=== PATIENT | female | born 1960 | race African-American/Black ===

== ENCOUNTER 2016-08-25 07:37 | Emergency (ER) ==
--- NOTE | 2016-08-25 08:39 | PROVIDER DOCUMENTATION ---
HPI-EENT General <Avril Snell - Last Filed: 08/25/16 09:46> - General Source: patient - History of Present Illness-EENT General EENT Location: reports: facial Quality of Pain: reports: aching Severity: reports: mild Onset/Duration: reports: other (2 weeks) Timing: reports: still present Prearrival Treatment: Initiated over the counter meds Associated Symptoms: reports: cough. denies: ear drainage, nasal congestion/ drainage, sore throat, voice change Locality of Occurance: Home Similar Symptoms Previously?: Yes Recently seen or treated by another doctor?: No <Kaushal Mcleod - Last Filed: 08/25/16 09:50> - General Chief Complaint: Headache Stated Complaint: HEADACHE/EARACHE/EYE PAIN Time Seen by Provider: 08/25/16 08:33 Allergies/Adverse Reactions: Patient Allergies Allergy/AdvReac Type Severity Reaction Status Date / Time codeine Allergy NAUSEA/VOMI Verified 10/14/13 18:14 TING sulfamethoxazole Allergy NAUSEA/VOMI Verified 10/14/13 18:14 [From Bactrim] TING trimethoprim [From Bactrim] Allergy NAUSEA/VOMI Verified 10/14/13 18:14 TING Home Medications: Home Medication List Medication Instructions Recorded Confirmed Last Taken Type Htn Tab 10/14/13 10/14/13 Unknown History Albuterol Sulfate [Albuterol 18 gm IH 4XDAY PRN PRN #1 08/25/16 Unknown Rx Sulfate Hfa] [email or web address] Hydrocodone/Homatropine [Hydromet] 2 tsp PO Q4-6H PRN PRN #6 oz 08/25/16 Unknown Rx PRAVAstatin [Pravachol] 10 mg PO DAILY 08/25/16 08/25/16 Unknown History Triamterene/Hydrochlorothiazid 1 each PO DAILY 08/25/16 08/25/16 Unknown History [Dyazide 37.5-25 Capsule] - History of Present Illness-EENT General Nature of Presenting Problem: cough x 2 week no f or chills no sob family sick (Kaushal Mcleod) Review of Systems - Adult - REVIEW OF SYSTEMS - ADULT Constitutional: denies: fever Eyes: denies: dry eyes, eye pain, redness Ears, Nose, Mouth & Throat: denies: sinus problem, hoarseness, throat pain, throat swelling Cardiovascular: denies: chest pain, palpitations Respiratory: reports: cough. denies: dyspnea on exertion, excessive sputum production, hemoptysis, pleurisy, shortness of breath, wheezing Gastrointestinal: denies: abdominal pain, diarrhea, nausea, vomiting Genitourinary: denies: dysuria, discharge, frequency, flank pain Musculoskeletal: reports: no symptoms reported Integumentary: reports: no symptoms reported Neurological: reports: no symptoms reported Psychiatric: reports: no symptoms reported Endocrine: reports: no symptoms reported Hematologic/Lymphatic: reports: no symptoms reported Allergic/Immunologic: reports: no symptoms reported <Kaushal Mcleod - Last Filed: 08/25/16 09:50> Past History - Adult - PAST MEDICAL HISTORY-ADULT Review of Records: reports: Nursing Assessment Review, Medications Reviewed, Social history reviewed & non-contributory. Major Childhood Illnesses: reports: denies history Cardiovascular: reports: denies history Respiratory: reports: denies history Gastrointestinal: reports: denies history Obstetrical/Gynecological: reports: denies history Genitourinary: reports: denies history Musculoskeletal: reports: denies history Neurological: reports: denies history Psychiatric: reports: denies history Endocrine/Immune: reports: denies history Other Conditions: reports: denies history - PRIOR SURGERIES/PROCEDURES Surgical/Procedure History: reports: hysterectomy - PRIOR HOSPITALIZATIONS Prior Hospitalizations: reports: for other non-related - IMMUNIZATION STATUS Childhood Immunizations: See Nurse Assessment Flu Vaccine: See Nurse Assessment - FAMILY HISTORY Family History: other (not contributory) <Kaushal Mcleod - Last Filed: 08/25/16 09:50> Physical Exam- EENT - Physical Exam EENT Initial Vital Signs Reviewed: Yes General Appearance: appears well, no apparent distress Eye Exam: bilateral eye: normal inspection, PERRL, EOMI Ear Exam: bilateral ear: auricle normal, canal normal, TM normal Nasal Exam: normal inspection Throat Exam: pharynx normal Neck: supple Respiratory: lungs clear, decreased breath sounds Cardiovascular: regular rate, rhythm Abdominal Exam: soft Lymphatic: no adenopathy Back Exam: normal inspection Extremity: normal range of motion Integumentary: normal color Neurologic: grossly normal Psych/Mental Status: oriented x 3 <Kaushal Mcleod - Last Filed: 08/25/16 09:50> Progress - XRAY 1 XRAY: Bilateral XRAY Study: Chest Impression: Normal XRAY Interpretation: negative exam <Avril Snell - Last Filed: 08/25/16 09:46> <Kaushal Mcleod - Last Filed: 08/25/16 09:50> - PLAN OF CARE/RESULTS Progress/Plan/Lab Results: Orders Category Date Time Status CHEST-2 VIEWS [RAD] Stat Exams 08/25/16 08:34 Draft Albuterol 2.5MG/Ipratrop 0.5MG [Duoneb (A & A)] Med 08/25/16 09:05 Discontinued 3 ml INH NOW ONE Aerosol Treatments Stat Oth 08/25/16 09:05 Active Peak Flow Stat Oth 08/25/16 08:34 Active Vital Signs - 24 hr 08/25/16 08/25/16 07:46 09:05 Temperature 98.3 F Pulse Rate 79 73 Respiratory 18 18 Rate Blood Pressure 143/77 O2 Sat by Pulse 100 98 Oximetry (Avril Snell) Departure <Avril Snell - Last Filed: 08/25/16 09:46> - Departure Time of Disposition Order: 09:47 Certified Medical Emergency: Emergent <Kaushal Mcleod - Last Filed: 08/25/16 09:50> - Departure DIAGNOSIS: Acute asthma flare Qualifiers: Asthma severity: unspecified severity Qualified Code(s): J45.901 - Unspecified asthma with (acute) exacerbation Disposition: HOME 01 Condition: Stable Additional Instructions: ED Follow Up Instructions: You have been treated by a care provider in the Emergency Department. These instructions are being provided to you so you can have an understanding of how to care for yourself upon discharge. Upon discharge from the Emergency Department, you are responsible for making arrangements for follow-up care by a physician of your choice. Take all prescribed medications as directed. Return to the Emergency Department immediately for any new or worsening symptoms. You may call the Physician Referral phone number at [phone] to obtain a list of Physicians who are taking new patients. Prescriptions: Albuterol Sulfate [Albuterol Sulfate Hfa] 18 gm IH 4XDAY PRN PRN #1 [email or web address] PRN Reason: Wheezing Hydrocodone/Homatropine [Hydromet] 2 tsp PO Q4-6H PRN PRN #6 oz PRN Reason: Cough Attestation - Scribe Verification/Attestation Scribe:: Avril Snell Acting as Scribe for:: Kaushal Mcleod Scribe documention review:: This chart was documented by a scribe and accurately reflects the service the provider performed and the decisions made by the provider. <Avril Snell - Last Filed: 08/25/16 09:46> Physician Attestation
[2016-08-25] MEDS ORDERED: DUONEB (A & A) INH ONE (09:05)
--- NOTE | 2016-08-25 09:26 | Diag Imaging Result Document ---
PROCEDURE NAME: CHEST-2 VIEWS - 08/25/2016 CHEST X-RAY, 2 VIEWS: COMPARISON: None. FINDINGS: There is a tiny granuloma in the right lung base laterally. No focal infiltrates, pneumothorax, or pleural effusion. Heart size and pulmonary vascularity is normal. IMPRESSION: Negative exam.
[2016-08-25 10:03] VITALS: BP 156/93
== END 2016-08-25 10:02 | disposition home or self-care (01) ==
LOC: P.ED 07:37
DX: J45.901 Unspecified asthma with (acute) exacerbation (principal); R05 Cough; Z79.899 Other long term (current) drug therapy
CPT/HCPCS: 71020; 94640